=== PATIENT | male | born 1960 | race Caucasian/White ===

== ENCOUNTER 2017-06-16 11:13 | Emergency (ER) | payer MEDICAID ==
[~2017-06-16] VITALS: Ht 177.8 cm; Wt 148.6 kg
[~2017-06-16 11:13] MED LIST: AMLO10TA2 PO; ASPI-496 PO; ATOR40TA78 PO; CARV-39 PO; CEPH-368 PO; CHOL500015 PO; CYCL-259 PO; GABA300C10 PO; GLIP10TA3 PO; HYDR-3307 PO; HYDR25TA6 PO; INDA1.25 PO; INSU100I13 SC; LOSA50TA6 PO; METF10002 PO; MULT1CAP19 PO; OMEG1CAP95 PO; SENN8.6C2 PO; SIMV20TA3; SITA1TBM4
[2017-06-16 11:18] VITALS: BP 121/77
== END 2017-06-16 11:46 | disposition home or self-care (01) ==
LOC: ED 11:30
DX: H65.01 Acute serous otitis media, right ear (principal); I10 Essential (primary) hypertension; G89.29 Other chronic pain; M54.9 Dorsalgia, unspecified; E11.9 Type 2 diabetes mellitus without complications
CPT/HCPCS: 99283

== ENCOUNTER 2017-08-07 19:21 | Emergency (ER) | payer MEDICAID ==
[~2017-08-07] VITALS: Ht 177.8 cm; Wt 146.0 kg
[2017-08-07] MEDS ORDERED: LOSA100T6 PO (20:40)
[2017-08-07] MEDS ORDERED: INSU100I34 SC (20:40)
[2017-08-07] MEDS ORDERED: CYCLOBENZAPRINE 10 MG TABLET ONE (20:56)
[2017-08-07] MEDS ORDERED: KETOROLAC 30 MG/1 ML ONE (20:56)
[2017-08-07] MEDS ORDERED: KETOROLAC 30 MG/1 ML IM ONE (21:00)
[2017-08-07] MEDS ORDERED: CYCLOBENZAPRINE 10 MG TABLET PO ONE (21:00)
[2017-08-07 21:04] LABS: HEMATOCRIT 41.3 % (39.2-51.8); HEMOGLOBIN 14.1 g/dL (13.7-18.0); WHITE BLOOD COUNT 8.7 x10^3/uL (3.4-10)
[2017-08-07 21:13] LABS: PATH.CAST-FLAG NOT PRESENT; SPERM-FLAG NOT PRESENT; SRC-FLAG NOT PRESENT; XTAL-FLAG NOT PRESENT; YLC-FLAG NOT PRESENT
[2017-08-07 21:15] LABS: BLOOD UREA NITROGEN 16 mg/dL (7-18)
[2017-08-07 21:48] VITALS: BP 129/75
== END 2017-08-07 22:45 | disposition home or self-care (01) ==
LOC: ED 22:30
DX: G89.29 Other chronic pain (principal); M54.6 Pain in thoracic spine; M51.34 Other intervertebral disc degeneration, thoracic region; I10 Essential (primary) hypertension; E11.65 Type 2 diabetes mellitus with hyperglycemia
CPT/HCPCS: 36415; 72072; 80048; 81001; 82040; 85025; 96372; 99285; J1885

== ENCOUNTER 2018-12-28 09:10 | Observation (INO) | payer MEDICAID ==
[~2018-12-28] VITALS: Ht 180.3 cm; Wt 146.5 kg
[~2018-12-28 09:10] MED LIST changes: -AMLO10TA2 PO; +AMLO10TA8 PO; +INSU100I34 SC; +LOSA100T14 PO; +LOSA50TA14 PO; -LOSA50TA6 PO
--- NOTE | 2018-12-28 10:14 | NUR ---
MD at bedside for assessment, patient accompanied by spouse, VSS on room air, NSR on bin packer, PWD, call light in reach.
[2018-12-28] MEDS ORDERED: NITROGLYCERIN OINT 2%, 1GM TP ONE ×2 (10:30→10:39)
[2018-12-28] MEDS ORDERED: SODIUM CHLORIDE FLUSH 10ML SYR IVF ONE (10:30)
[2018-12-28] MEDS ORDERED: ASPIRIN 81 MG TABLET CHEW PO ONE (10:30)
[2018-12-28] MEDS ORDERED: ASPIRIN 81 MG TABLET CHEW ONE (10:39)
--- NOTE | 2018-12-28 10:48 | NUR ---
medicated per mar, no acute changes, vss on room air,
[2018-12-28 10:59] LABS: BASOPHILS # (AUTO) 0.03 x10^3/uL (0-0.1); BASOPHILS % (AUTO) 1 % (0-1); EOSINOPHILS # (AUTO) 0.19 x10^3/uL (0-0.4); EOSINOPHILS % (AUTO) 3 % (1-7); LYMPHOCYTES # (AUTO) 2.28 x10^3/uL (1-3.4); LYMPHOCYTES % (AUTO) 36 % (22-44); MD NO; MEAN CORPUSCULAR HEMOGLOBIN 30.6 pg (27.5-34.5); MEAN CORPUSCULAR HGB CONC 34.3 g/dL (33.2-36.2); MEAN CORPUSCULAR VOLUME 89.3 fL (81-97); MEAN PLATELET VOLUME 7.9 fL (7.4-10.4); MONOCYTES # (AUTO) 0.73 x10^3/uL (0.2-0.8); MONOCYTES % (AUTO) 12 % (2-9); NEUTROPHILS # (AUTO) 3.13 x10^3/uL (1.8-6.8); NEUTROPHILS % (AUTO) 49 % (42-75); PLATELET COUNT 184 x10^3/uL (130-400); RED BLOOD COUNT 4.67 x10^6/uL (4.38-5.82); RED CELL DISTRIBUTION WIDTH 12.5 % (9.4-14.8)
[2018-12-28] MEDS ORDERED: novol (11:03)
[2018-12-28 11:05] LABS: INTERNATIONAL NORMALIZED RATIO 1.08 (0.93-1.1); PROTHROMBIN TIME 11.4 Seconds (9.6-11.5)
[2018-12-28 11:07] LABS: ALANINE AMINOTRANSFERASE 43 U/L (12-78); ALBUMIN 3.8 g/dL (3.4-5.0); ANION GAP 5 mmol/L (5-15); CHLORIDE 106 mmol/L (98-107); CREATININE 0.86 mg/dL (0.7-1.3)
[2018-12-28] MEDS ORDERED: vit d2 (11:08)
[2018-12-28] MEDS ORDERED: INSU300I SC (11:08)
[2018-12-28] MEDS ORDERED: VICTOZA (11:08)
[2018-12-28] MEDS ORDERED: novolog (11:08)
[2018-12-28] MEDS ORDERED: GABA300C10 PO ×2 (11:08)
[2018-12-28 11:11] LABS: ALKALINE PHOSPHATASE 117 U/L (45-117); TOTAL PROTEIN 7.8 g/dL (6.4-8.2); TROPONIN I < 0.015 ng/mL (0.000-0.045)
--- NOTE | 2018-12-28 11:59 | NUR ---
patient updated of transfer plan, spouse at bedside VSS on room air, No chest pain now, 1/10 L arm sharp tingling remains, water and crackers provided with permission from MD Sloan, Report via phone to PAO [place], all questions answered, Hospitalist Abbey has been to bedside, RTG status now.
[2018-12-28] MEDS ORDERED: ACETAMINOPHEN 325 MG TABLET PO PRN (12:00)
[2018-12-28] MEDS ORDERED: ONDANSETRON 2MG/ML, 2ML IVPush PRN (12:00)
[2018-12-28] MEDS ORDERED: ENOXAPARIN 40 MG/0.4 ML SQ SCH (12:00)
[2018-12-28] MEDS ORDERED: BISACODYL 10 MG SUPP PR PRN (12:00)
[2018-12-28] MEDS ORDERED: ENALAPRILAT 1.25 MG/ML, 2ML IVPush PRN (12:00)
[2018-12-28] MEDS ORDERED: POLYETHYLENE GLYCOL 17 GM PACKET PO PRN (12:00)
[2018-12-28] MEDS ORDERED: DOCUSATE 100 MG CAPSULE PO PRN (12:00)
[2018-12-28 12:50] VITALS: BP 133/80
[2018-12-28 16:00] LABS: TROPONIN I < 0.015 ng/mL (0.000-0.045)
[2018-12-28] MEDS: INSULIN LISPRO 100 UNITS/ML, PEN SQ-INSULIN SCH ×2 (17:09→20:39)
[2018-12-28 19:56] VITALS: BP 138/82
[2018-12-28] MEDS: CARVEDILOL 25 MG TABLET PO SCH (20:33)
[2018-12-28] MEDS ORDERED: GABAPENTIN 300 MG CAPSULE PO SCH (21:00)
[2018-12-28] MEDS ORDERED: LOSARTAN 50MG TABLET PO SCH (21:00)
[2018-12-28 21:38] LABS: TROPONIN I < 0.015 ng/mL (0.000-0.045)
[2018-12-29 02:30] VITALS: BP 135/87
[2018-12-29 05:27] LABS: CHOL/HDL RATIO 3.1; LDL/HDL RATIO 0.4 (0.5-3.0)
[2018-12-29] MEDS: INSULIN LISPRO 100 UNITS/ML, PEN SQ-INSULIN SCH ×3 (07:00→17:31)
[2018-12-29 07:09] VITALS: BP 143/88
[2018-12-29] MEDS ORDERED: GABAPENTIN 300 MG CAPSULE PO SCH (07:30)
[2018-12-29] MEDS: CARVEDILOL 25 MG TABLET PO SCH (08:24)
[2018-12-29] MEDS ORDERED: REGADENOSON 0.4 MG/5 ML SYRINGE ONE (08:24)
[2018-12-29] MEDS ORDERED: AMLODIPINE 10 MG TAB PO SCH (09:00)
[2018-12-29] MEDS ORDERED: ASPIRIN 81 MG TABLET EC PO SCH (09:00)
[2018-12-29 16:48] VITALS: BP 154/84
== END 2018-12-29 18:15 | disposition home or self-care (01) ==
LOC: ED 11:13 → EDIP 11:16 → INTOOBSV 11:16 → 5SO 12:27
PROVIDERS: ADMIT Family Medicine; ATTEND Family Medicine
DX: R07.89 Other chest pain (principal); E11.65 Type 2 diabetes mellitus with hyperglycemia; E78.5 Hyperlipidemia, unspecified; G47.33 Obstructive sleep apnea (adult) (pediatric); I11.9 Hypertensive heart disease without heart failure; Z79.4 Long term (current) use of insulin; Z82.49 Family history of ischemic heart disease and other diseases of the circulatory system; Z83.3 Family history of diabetes mellitus
CPT/HCPCS: 36415; 71045; 78452; 80053; 80061; 82962; 83880; 84484; 85025; 85610; 85730; 93005; 93017; 96372; 99284; A9502; C9898; G0378; J1650; J1815; J2785; 99285

== ENCOUNTER 2019-03-17 09:52 | Emergency (ER) | payer MEDICAID ==
[~2019-03-17] VITALS: Ht 177.8 cm; Wt 150.0 kg
[~2019-03-17 09:52] MED LIST changes: +INSU300I SC; +VICTOZA; +novol; +novolog; +vit d2
--- NOTE | 2019-03-17 10:28 | NUR ---
pt in room. at bedside. md in room previous to discuss poc. pt agrees with poc at this time and awaiting results. no needs or wants expressed at this time.
[2019-03-17 10:34] LABS: BASOPHILS # (AUTO) 0.02 x10^3/uL (0-0.1); BASOPHILS % (AUTO) 0 % (0-1); EOSINOPHILS # (AUTO) 0.15 x10^3/uL (0-0.4); EOSINOPHILS % (AUTO) 2 % (1-7); LYMPHOCYTES # (AUTO) 2.15 x10^3/uL (1-3.4); LYMPHOCYTES % (AUTO) 34 % (22-44); MD NO; MEAN CORPUSCULAR HEMOGLOBIN 30.9 pg (27.5-34.5); MEAN CORPUSCULAR HGB CONC 34.6 g/dL (33.2-36.2); MEAN CORPUSCULAR VOLUME 89.1 fL (81-97); MEAN PLATELET VOLUME 7.9 fL (7.4-10.4); MONOCYTES # (AUTO) 0.68 x10^3/uL (0.2-0.8); MONOCYTES % (AUTO) 11 % (2-9); NEUTROPHILS # (AUTO) 3.26 x10^3/uL (1.8-6.8); NEUTROPHILS % (AUTO) 52 % (42-75); PLATELET COUNT 200 x10^3/uL (130-400); RED BLOOD COUNT 4.75 x10^6/uL (4.38-5.82); RED CELL DISTRIBUTION WIDTH 12.6 % (9.4-14.8)
[2019-03-17 10:43] LABS: ALBUMIN 3.8 g/dL (3.4-5.0); ANION GAP 8 mmol/L (5-15); CHLORIDE 103 mmol/L (98-107); CREATININE 1.05 mg/dL (0.7-1.3)
[2019-03-17] MEDS ORDERED: SULFAMETH./TRIMETHOPRIM DS 800MG/160MG TABLET PO ONE (11:00)
[2019-03-17] MEDS ORDERED: CEPHALEXIN 500 MG CAPSULE PO ONE (11:00)
[2019-03-17] MEDS ORDERED: CEFTRIAXONE PMX 1GM/50ML 50 ML ONE (11:18)
[2019-03-17] MEDS ORDERED: SODIUM CHLORIDE FLUSH 10ML SYR IVF ONE (11:30)
[2019-03-17] MEDS ORDERED: CEFTRIAXONE PMX 1GM/50ML 50 ML IVPB ONE (11:30)
[2019-03-17] MEDS ORDERED: SODIUM CHLORIDE 0.9% 1,000ML IVBOLUS ONE (11:30)
--- NOTE | 2019-03-17 11:35 | NUR ---
PT IN BED WITH AT BEDSIDE. NO WANTS OR NEEDS AT THIS TIME.
[2019-03-17 12:19] VITALS: BP 128/79
--- NOTE | 2019-03-17 12:21 | NUR ---
TASK RN: IVF COMPLETED, FSBS RECHECKED, VS UPDATED. PT. [address]. FAMILY AT FOR SUPPORT. PT. DENIES NEEDS. CALL LIGHT IN REACH.
== END 2019-03-17 12:55 | disposition home or self-care (01) ==
LOC: ED 10:15
DX: L03.032 Cellulitis of left toe (principal); I10 Essential (primary) hypertension; E11.9 Type 2 diabetes mellitus without complications; E78.00 Pure hypercholesterolemia, unspecified
CPT/HCPCS: 36415; 80048; 82040; 85025; 96365; 99283; J0696; J7030

== ENCOUNTER → 2019-04-17 | Outpatient (CLI) | payer MEDICAID ==
[~2019-04-17] MED LIST changes: +ATOR40TA PO; +ERGO500017 PO; +FURO-93 PO; +INSU100I18 SC; +LIRA0.6P SC; +MULT-516 PO; +POTA20TA6 PO
[2019-04-17 10:41] LABS: BASOPHILS # (AUTO) 0.03 x10^3/uL (0-0.1); BASOPHILS % (AUTO) 1 % (0-1); EOSINOPHILS # (AUTO) 0.22 x10^3/uL (0-0.4); EOSINOPHILS % (AUTO) 3 % (1-7); LYMPHOCYTES # (AUTO) 2.11 x10^3/uL (1-3.4); LYMPHOCYTES % (AUTO) 29 % (22-44); MD NO; MEAN CORPUSCULAR HEMOGLOBIN 30.7 pg (27.5-34.5); MEAN CORPUSCULAR HGB CONC 33.7 g/dL (33.2-36.2); MEAN PLATELET VOLUME 7.5 fL (7.4-10.4); MONOCYTES # (AUTO) 0.77 x10^3/uL (0.2-0.8); MONOCYTES % (AUTO) 11 % (2-9); NEUTROPHILS # (AUTO) 4.04 x10^3/uL (1.8-6.8); NEUTROPHILS % (AUTO) 56 % (42-75); PLATELET COUNT 209 x10^3/uL (130-400); RED BLOOD COUNT 4.97 x10^6/uL (4.38-5.82); RED CELL DISTRIBUTION WIDTH 12.6 % (9.4-14.8)
[2019-04-17 10:56] LABS: MICROSCOPIC NOT IND
[2019-04-17 10:57] LABS: ANION GAP 8 mmol/L (5-15); CALCIUM 8.8 mg/dL (8.5-10.1); CHLORIDE 104 mmol/L (98-107)
[2019-04-17 10:58] LABS: INTERNATIONAL NORMALIZED RATIO 1.06 (0.93-1.1); PROTHROMBIN TIME 11.1 Seconds (9.6-11.5)
[2019-04-17 11:00] LABS: ALANINE AMINOTRANSFERASE 53 U/L (12-78); ALKALINE PHOSPHATASE 112 U/L (45-117); CREATININE 1.13 mg/dL (0.7-1.3); TOTAL PROTEIN 7.7 g/dL (6.4-8.2)
[2019-04-17 11:04] LABS: CULTURE INDICATED? NO
== END | disposition home or self-care (01) ==
LOC: STAR 09:37
PROVIDERS: ATTEND Neurological Surgery
DX: Z01.818 Encounter for other preprocedural examination (principal); Z01.810 Encounter for preprocedural cardiovascular examination; Z01.812 Encounter for preprocedural laboratory examination; Z01.811 Encounter for preprocedural respiratory examination; M47.816 Spondylosis without myelopathy or radiculopathy, lumbar region; R94.31 Abnormal electrocardiogram [ECG] [EKG]
CPT/HCPCS: 36415; 71046; 72110; 80053; 81003; 85025; 85610; 85730; 93005

== ENCOUNTER 2019-04-28 07:00 | Inpatient (IN) | payer MEDICAID ==
[2019-04-17 10:04] VITALS: BP 145/88
[~2019-04-28] VITALS: Ht 177.8 cm; Wt 151.5 kg
[2019-04-28] MEDS ORDERED: LACTATED RINGERS 1,000 ML IV SCH (08:03)
[2019-04-28] MEDS ORDERED: MIDAZOLAM 1 MG/ML, 2ML ONE (08:20)
[2019-04-28] MEDS ORDERED: FENTANYL PF 250 MCG/5ML ONE ×2 (08:21→10:33)
[2019-04-28] MEDS ORDERED: PROPOFOL 100 ML ONE ×2 (08:29→12:06)
[2019-04-28] MEDS ORDERED: THROMBIN 20,000 UNIT VIAL TP ONE ×2 (08:30→16:37)
[2019-04-28] MEDS ORDERED: ONDANSETRON 2MG/ML, 2ML ONE (08:31)
[2019-04-28] MEDS ORDERED: CEFAZOLIN 1,000 MG ONE (08:31)
[2019-04-28] MEDS ORDERED: PROPOFOL 10 MG/ML, 20ML ONE (08:31)
[2019-04-28] MEDS ORDERED: LIDOCAINE-MPF 2% ,5ML ONE (08:31)
[2019-04-28] MEDS ORDERED: ROCURONIUM 10MG/ML,5ML ONE (08:31)
[2019-04-28] MEDS ORDERED: NEOSTIGMINE 1 MG/ML, 10ML ONE (08:31)
[2019-04-28] MEDS ORDERED: DEXAMETHASONE 4 MG/ML, 1ML ONE (08:31)
[2019-04-28] MEDS ORDERED: SUCCINYLCHOLINE 20 MG/ML, 10ML ONE (08:31)
[2019-04-28] MEDS ORDERED: GLYCOPYRROLATE 0.2MG/1ML, 5ML ONE (08:31)
[2019-04-28] MEDS ORDERED: hydrALAzine 20 MG/ML, 1ML ONE (10:04)
[2019-04-28] MEDS ORDERED: BUPIVACAINE/EPI 0.5% 1:200K INFIL ONE (10:47)
[2019-04-28] MEDS ORDERED: BACITRACIN 50,000 UNIT IRRIG ONE (10:48)
[2019-04-28] MEDS ORDERED: MEPERIDINE/PF 25MG/0.5ML IVPush PRN (12:30)
[2019-04-28] MEDS ORDERED: LORazepam 2 MG/ML, 1ML IVPush PRN (12:30)
[2019-04-28] MEDS ORDERED: ONDANSETRON 2MG/ML, 2ML IV PRN (12:30)
[2019-04-28] MEDS ORDERED: LABETALOL 5MG/ML, 20ML IV PRN (12:30)
[2019-04-28] MEDS ORDERED: ONDANSETRON ODT 8 MG PO PRN (12:30)
[2019-04-28] MEDS ORDERED: ACETAMINOPHEN 325 MG TABLET PO PRN (12:30)
[2019-04-28] MEDS ORDERED: OXYcodone 5 MG/5 ML ORAL.SOL UDC PO PRN (12:30)
[2019-04-28] MEDS ORDERED: hydrALAzine 20 MG/ML, 1ML IV PRN (12:30)
[2019-04-28] MEDS ORDERED: PROMETHAZINE 25 MG/ML, 1ML IV PRN (12:30)
[2019-04-28] MEDS ORDERED: PROMETHAZINE 25 MG SUPP PR PRN (12:30)
[2019-04-28] MEDS ORDERED: FENTANYL PF 100 MCG/2ML ONE ×2 (13:15→13:54)
[2019-04-28] MEDS ORDERED: OXYcodone 5 MG/5 ML ORAL.SOL UDC ONE (13:54)
[2019-04-28] MEDS ORDERED: HYDROmorphone 2 MG/ML, 1ML ONE (13:54)
[2019-04-28] MEDS: HYDROmorphone 2 MG/ML, 1ML IVPush PRN ×2 (14:00→14:11)
[2019-04-28] MEDS ORDERED: SENNA/DOCUSATE TABLET PO PRN (14:00)
[2019-04-28] MEDS: FENTANYL PF 100 MCG/2ML IV PRN ×2 (14:00→14:15)
[2019-04-28] MEDS ORDERED: MAGNESIUM HYDROXIDE 8%, 30ML UDC PO PRN (14:00)
[2019-04-28] MEDS ORDERED: HYDROcodone/APAP 5/325 TABLET PO PRN (14:00)
[2019-04-28] MEDS ORDERED: ERGOCALCIFEROL 50,000 UNIT CAPSULE PO SCH (14:00)
[2019-04-28] MEDS ORDERED: BISACODYL 10 MG SUPP PR PRN (14:00)
[2019-04-28] MEDS ORDERED: PROMETHAZINE 25 MG/ML, 1ML IM PRN (14:00)
[2019-04-28] MEDS ORDERED: ONDANSETRON 2MG/ML, 2ML IVPush PRN (14:00)
[2019-04-28] MEDS ORDERED: HYDROmorphone 2 MG/ML, 1ML IM PRN (14:00)
[2019-04-28] MEDS ORDERED: PHARMACY MAY ADJ FOR RENAL FX MC PRN (15:00)
[2019-04-28] MEDS: CHOLECALCIFEROL 5,000u TAB PO SCH (15:46)
[2019-04-28] MEDS: NS + 20MEQ KCL 1,000 ML IV SCH (15:46)
[2019-04-28] MEDS ORDERED: BACITRACIN 50,000 UNIT ONE (16:37)
[2019-04-28] MEDS ORDERED: BUPIVACAINE/EPI 0.5% 1:200K ONE (16:37)
[2019-04-28] MEDS: metFORMIN 500 MG TABLET PO SCH (16:43)
[2019-04-28] MEDS: METHOCARBAMOL 750 MG TABLET PO PRN (16:44)
[2019-04-28] MEDS: INSULIN REGULAR 100 UNITS/ML, 3ML VIAL SQ-INSULIN SCH ×2 (16:44→20:25)
[2019-04-28] MEDS: CEFAZOLIN PMX 1GM/50ML 50 ML IVPB SCH (16:44)
[2019-04-28] MEDS: NOVOLOG SQ-INSULIN SCH (16:51)
[2019-04-28 19:48] VITALS: BP 128/81
[2019-04-28] MEDS: AMLODIPINE 10 MG TAB PO SCH (20:28)
[2019-04-28] MEDS: ATORVASTATIN 40 MG TABLET PO SCH (20:28)
[2019-04-28] MEDS: GABAPENTIN 300 MG CAPSULE PO SCH (20:28)
[2019-04-28] MEDS: CARVEDILOL 25 MG TABLET PO SCH (20:29)
[2019-04-28] MEDS: SODIUM CHLORIDE FLUSH 10ML SYR IVF SCH (20:29)
[2019-04-28] MEDS: LOSARTAN 50MG TABLET PO SCH (20:29)
[2019-04-28] MEDS: DIPHENHYDRAMINE 50 MG/ML, 1ML IVPush PRN (20:41)
[2019-04-29 00:16] VITALS: BP 130/77
[2019-04-29] MEDS: CEFAZOLIN PMX 1GM/50ML 50 ML IVPB SCH (00:34)
[2019-04-29] MEDS: OXYcodone/APAP 5/325MG TABLET PO PRN ×3 (00:35→10:53)
[2019-04-29] MEDS: NS + 20MEQ KCL 1,000 ML IV SCH ×2 (03:54→14:00)
[2019-04-29 04:21] LABS: CREATININE 0.98 mg/dL (0.7-1.3)
[2019-04-29 04:22] VITALS: BP 109/64
[2019-04-29 07:09] VITALS: BP 98/52
[2019-04-29] MEDS: NOVOLOG SQ-INSULIN SCH ×3 (07:30→16:00)
[2019-04-29] MEDS: GABAPENTIN 300 MG CAPSULE PO SCH ×2 (07:30→19:46)
[2019-04-29] MEDS: INSULIN REGULAR 100 UNITS/ML, 3ML VIAL SQ-INSULIN SCH ×4 (07:43→22:12)
[2019-04-29] MEDS: metFORMIN 500 MG TABLET PO SCH ×2 (07:44→17:26)
[2019-04-29] MEDS: SODIUM CHLORIDE FLUSH 10ML SYR IVF SCH ×2 (09:00→19:37)
[2019-04-29] MEDS: CARVEDILOL 25 MG TABLET PO SCH ×2 (09:13→19:47)
[2019-04-29] MEDS: CHOLECALCIFEROL 5,000u TAB PO SCH (09:13)
[2019-04-29] MEDS: MULTIVITAMIN 1 TABLET PO SCH (09:13)
[2019-04-29] MEDS: FUROSEMIDE 20 MG TABLET PO SCH (09:13)
[2019-04-29] MEDS: POTASSIUM CHLORIDE 20 MEQ TAB.ER.PRT PO SCH (09:13)
[2019-04-29] MEDS: DIPHENHYDRAMINE 50 MG/ML, 1ML IVPush PRN ×2 (10:53→19:37)
[2019-04-29 13:08] VITALS: BP 128/80
[2019-04-29 18:54] VITALS: BP 156/97
[2019-04-29] MEDS: HYDROcodone/APAP 10/325 MG TABLET PO PRN (19:46)
[2019-04-29] MEDS: ATORVASTATIN 40 MG TABLET PO SCH (19:46)
[2019-04-29] MEDS: AMLODIPINE 10 MG TAB PO SCH (19:47)
[2019-04-29] MEDS: LOSARTAN 50MG TABLET PO SCH (19:47)
[2019-04-30] MEDS: HYDROcodone/APAP 10/325 MG TABLET PO PRN ×5 (01:01→21:13)
[2019-04-30 01:15] VITALS: BP 120/73
[2019-04-30] MEDS: DIPHENHYDRAMINE 50 MG/ML, 1ML IVPush PRN ×3 (01:54→21:13)
[2019-04-30] MEDS: INSULIN REGULAR 100 UNITS/ML, 3ML VIAL SQ-INSULIN SCH ×4 (07:00→20:38)
[2019-04-30 07:10] VITALS: BP 118/84
[2019-04-30] MEDS: CARVEDILOL 25 MG TABLET PO SCH ×2 (08:18→21:00)
[2019-04-30] MEDS: CHOLECALCIFEROL 5,000u TAB PO SCH (08:18)
[2019-04-30] MEDS: FUROSEMIDE 20 MG TABLET PO SCH (08:19)
[2019-04-30] MEDS: MULTIVITAMIN 1 TABLET PO SCH (08:19)
[2019-04-30] MEDS: POTASSIUM CHLORIDE 20 MEQ TAB.ER.PRT PO SCH (08:19)
[2019-04-30] MEDS: metFORMIN 500 MG TABLET PO SCH ×2 (08:19→17:04)
[2019-04-30] MEDS: NOVOLOG SQ-INSULIN SCH ×3 (08:19→17:05)
[2019-04-30] MEDS: GABAPENTIN 300 MG CAPSULE PO SCH ×2 (08:19→21:00)
[2019-04-30] MEDS: SODIUM CHLORIDE FLUSH 10ML SYR IVF SCH ×2 (08:20→21:14)
[2019-04-30] MEDS: NS + 20MEQ KCL 1,000 ML IV SCH ×3 (10:00→20:00)
[2019-04-30 12:18] VITALS: BP 131/83
[2019-04-30 20:26] VITALS: BP 124/67
[2019-04-30] MEDS: AMLODIPINE 10 MG TAB PO SCH (20:59)
[2019-04-30] MEDS: ATORVASTATIN 40 MG TABLET PO SCH (21:00)
[2019-04-30] MEDS: LOSARTAN 50MG TABLET PO SCH (21:00)
[2019-05-01 00:46] VITALS: BP 103/59
[2019-05-01] MEDS: HYDROcodone/APAP 10/325 MG TABLET PO PRN ×4 (04:17→21:18)
[2019-05-01] MEDS: NS + 20MEQ KCL 1,000 ML IV SCH ×2 (05:58→16:00)
[2019-05-01 06:58] VITALS: BP 109/61
[2019-05-01] MEDS: INSULIN REGULAR 100 UNITS/ML, 3ML VIAL SQ-INSULIN SCH ×4 (07:00→21:56)
[2019-05-01 07:49] VITALS: BP 124/75
[2019-05-01] MEDS: GABAPENTIN 300 MG CAPSULE PO SCH ×2 (07:51→21:17)
[2019-05-01] MEDS: SODIUM CHLORIDE FLUSH 10ML SYR IVF SCH ×2 (07:51→21:00)
[2019-05-01] MEDS: POTASSIUM CHLORIDE 20 MEQ TAB.ER.PRT PO SCH (07:51)
[2019-05-01] MEDS: MULTIVITAMIN 1 TABLET PO SCH (07:51)
[2019-05-01] MEDS: metFORMIN 500 MG TABLET PO SCH ×2 (07:51→16:30)
[2019-05-01] MEDS: FUROSEMIDE 20 MG TABLET PO SCH (07:51)
[2019-05-01] MEDS: CARVEDILOL 25 MG TABLET PO SCH ×2 (07:51→21:17)
[2019-05-01] MEDS: CHOLECALCIFEROL 5,000u TAB PO SCH (07:51)
[2019-05-01] MEDS: NOVOLOG SQ-INSULIN SCH ×3 (07:52→16:31)
[2019-05-01] MEDS: CEFAZOLIN PMX 1GM/50ML 50 ML IV SCH ×2 (09:57→17:03)
[2019-05-01 13:08] VITALS: BP 125/73
[2019-05-01] MEDS: DIPHENHYDRAMINE 25 MG CAPSULE PO PRN ×2 (13:16→21:17)
[2019-05-01 19:36] VITALS: BP 131/74
[2019-05-01] MEDS: AMLODIPINE 10 MG TAB PO SCH (21:16)
[2019-05-01] MEDS: ATORVASTATIN 40 MG TABLET PO SCH (21:16)
[2019-05-01] MEDS: LOSARTAN 50MG TABLET PO SCH (21:17)
[2019-05-02] MEDS: DIPHENHYDRAMINE 25 MG CAPSULE PO PRN (00:44)
[2019-05-02] MEDS: CEFAZOLIN PMX 1GM/50ML 50 ML IV SCH (00:45)
[2019-05-02] MEDS: NS + 20MEQ KCL 1,000 ML IV SCH ×2 (01:59→12:00)
[2019-05-02 02:39] VITALS: BP 119/64
[2019-05-02] MEDS: METHOCARBAMOL 750 MG TABLET PO PRN (06:50)
[2019-05-02 06:55] VITALS: BP 116/68
[2019-05-02] MEDS: INSULIN REGULAR 100 UNITS/ML, 3ML VIAL SQ-INSULIN SCH ×2 (07:00→11:00)
[2019-05-02] MEDS: POTASSIUM CHLORIDE 20 MEQ TAB.ER.PRT PO SCH (08:34)
[2019-05-02] MEDS: HYDROmorphone 2MG TABLET PO PRN ×2 (08:34→12:35)
[2019-05-02] MEDS: FUROSEMIDE 20 MG TABLET PO SCH (08:35)
[2019-05-02] MEDS: MULTIVITAMIN 1 TABLET PO SCH (08:35)
[2019-05-02] MEDS: GABAPENTIN 300 MG CAPSULE PO SCH (08:35)
[2019-05-02] MEDS: CHOLECALCIFEROL 5,000u TAB PO SCH (08:35)
[2019-05-02] MEDS: metFORMIN 500 MG TABLET PO SCH (08:35)
[2019-05-02] MEDS: SODIUM CHLORIDE FLUSH 10ML SYR IVF SCH (08:37)
[2019-05-02] MEDS: CARVEDILOL 25 MG TABLET PO SCH (08:37)
[2019-05-02] MEDS: NOVOLOG SQ-INSULIN SCH ×2 (08:38→11:52)
[2019-05-02] MEDS ORDERED: DOXYCYCLINE 100MG TABLET PO SCH (09:00)
[2019-05-02] MEDS ORDERED: METH750T87 PO (09:27)
[2019-05-02] MEDS ORDERED: CEPH-368 PO (09:27)
[2019-05-02] MEDS ORDERED: HYDR2TAB29 PO (09:29)
[2019-05-02 12:24] VITALS: BP 120/73
== END 2019-05-02 13:08 | disposition home or self-care (01) | DRG 455 ==
LOC: ORIP 07:10 → 4NOR 14:47 → DCLOUNGE 05-02 12:50
PROVIDERS: ADMIT Neurological Surgery; ATTEND Neurological Surgery
PROC: 0ST40ZZ Resection of Lumbosacral Disc, Open Approach (ICD-10-PCS; 2019-04-28)
PROC: 01NB0ZZ Release Lumbar Nerve, Open Approach (ICD-10-PCS; 2019-04-28)
PROC: 4A11X4G Monitoring of Peripheral Nervous Electrical Activity, Intraoperative, External Approach (ICD-10-PCS; 2019-04-28)
PROC: 0SG3071 Fusion of Lumbosacral Joint with Autologous Tissue Substitute, Posterior Approach, Posterior Column, Open Approach (ICD-10-PCS; 2019-04-28)
PROC: 0SG30AJ Fusion of Lumbosacral Joint with Interbody Fusion Device, Posterior Approach, Anterior Column, Open Approach (ICD-10-PCS; principal; 2019-04-28 10:00)
DX: M51.17 Intervertebral disc disorders with radiculopathy, lumbosacral region (principal); M43.17 Spondylolisthesis, lumbosacral region; M48.061 Spinal stenosis, lumbar region without neurogenic claudication; M51.16 Intervertebral disc disorders with radiculopathy, lumbar region; I10 Essential (primary) hypertension; E11.9 Type 2 diabetes mellitus without complications; G89.29 Other chronic pain; M48.07 Spinal stenosis, lumbosacral region; Z88.1 Allergy status to other antibiotic agents; Z88.8 Allergy status to other drugs, medicaments and biological substances; Z88.5 Allergy status to narcotic agent; Z88.6 Allergy status to analgesic agent; Z79.899 Other long term (current) drug therapy; Z98.84 Bariatric surgery status
CPT/HCPCS: 36415; 72100; J3490; 82565; 82962; C1713; C1729; C1776; G0378; J0690; J1100; J1170; J1815; J2250; J2405; J2704; J2710; J3010; J3480; C1751; C1763; J0330; J0360; J1200; J7120; Q0163

== ENCOUNTER 2019-05-16 19:07 | Emergency (ER) | payer MEDICAID ==
[~2019-05-16] VITALS: Ht 177.8 cm; Wt 145.2 kg
[~2019-05-16 19:07] MED LIST changes: +HYDR2TAB29 PO; +METH750T87 PO
--- NOTE | 2019-05-16 20:04 | NUR ---
PT HAD BACK SURGERY ON 04/28. PT WORRIED ABOUT INCISION NOW BECUASE OF WARM, REDDNESS, DISCHARGE AT INCISION ON BACK. NO OTHER SYMPTOMS AT THIS TIME.
[2019-05-16 20:50] LABS: BASOPHILS # (AUTO) 0.09 x10^3/uL (0-0.1); BASOPHILS % (AUTO) 1 % (0-1); EOSINOPHILS # (AUTO) 0.06 x10^3/uL (0-0.4); EOSINOPHILS % (AUTO) 1 % (1-7); LYMPHOCYTES # (AUTO) 1.27 x10^3/uL (1-3.4); LYMPHOCYTES % (AUTO) 11 % (22-44); MD NO; MEAN CORPUSCULAR HEMOGLOBIN 30.6 pg (27.5-34.5); MEAN CORPUSCULAR HGB CONC 33.2 g/dL (33.2-36.2); MEAN CORPUSCULAR VOLUME 92.3 fL (81-97); MEAN PLATELET VOLUME 7.3 fL (7.4-10.4); MONOCYTES # (AUTO) 1.08 x10^3/uL (0.2-0.8); MONOCYTES % (AUTO) 10 % (2-9); NEUTROPHILS # (AUTO) 8.58 x10^3/uL (1.8-6.8); NEUTROPHILS % (AUTO) 77 % (42-75); PLATELET COUNT 276 x10^3/uL (130-400); RED BLOOD COUNT 4.39 x10^6/uL (4.38-5.82); RED CELL DISTRIBUTION WIDTH 13.3 % (9.4-14.8)
[2019-05-16 20:57] LABS: ALANINE AMINOTRANSFERASE 25 U/L (12-78); ALBUMIN 3.4 g/dL (3.4-5.0); ANION GAP 3 mmol/L (5-15); CALCIUM 8.9 mg/dL (8.5-10.1); CHLORIDE 102 mmol/L (98-107); CREATININE 1.14 mg/dL (0.7-1.3)
[2019-05-16 20:59] LABS: ALKALINE PHOSPHATASE 133 U/L (45-117); BILIRUBIN,TOTAL 0.7 mg/dL (0.2-1.0); TOTAL PROTEIN 7.4 g/dL (6.4-8.2)
--- NOTE | 2019-05-16 21:24 | NUR ---
PT TO CT
[2019-05-16] MEDS ORDERED: OMNIPAQUE 350 MG/ML, 100ML BOTTLE ONE (21:37)
--- NOTE | 2019-05-16 21:53 | NUR ---
ALL RESULTS BACK AT THIS TIME, CHART UP FOR RECHECK
--- NOTE | 2019-05-16 22:38 | NUR ---
MD TO BEDSIDE TO UPDATE PT AND FAMILY ON POC
--- NOTE | 2019-05-16 23:07 | NUR ---
RECEIVED BS REPORT FROM LYNDA Becerril RN TO ASSUME CARE OF PT. PT. PROVIDED WITH WATER AFTER OK FROM DR. ARENAS.
[2019-05-16] MEDS ORDERED: BACITRACIN ZINC OINT 500U/GM, 0.9 GM ONE (23:36)
[2019-05-17 00:08] VITALS: BP 93/62
== END 2019-05-17 00:09 | disposition home or self-care (01) ==
LOC: ED 22:20
DX: T81.31XA Disruption of external operation (surgical) wound, not elsewhere classified, initial encounter (principal); Z88.6 Allergy status to analgesic agent; Z88.5 Allergy status to narcotic agent; Z88.1 Allergy status to other antibiotic agents; Z88.8 Allergy status to other drugs, medicaments and biological substances; Y83.8 Other surgical procedures as the cause of abnormal reaction of the patient, or of later complication, without mention of misadventure at the time of the procedure; Y92.89 Other specified places as the place of occurrence of the external cause
CPT/HCPCS: 36415; 72132; 80053; 85025; 99284; Q9967

== ENCOUNTER 2019-05-26 14:49 | Inpatient (IN) | payer MEDICAID ==
[~2019-05-26] VITALS: Ht 177.8 cm; Wt 145.1 kg
--- NOTE | 2019-05-26 14:56 | NUR ---
PT AMBULATORY WITH STEADY GAIT USING CANE TO ROOM AT THIS TIME
--- NOTE | 2019-05-26 15:08 | NUR ---
58 Y/O MALE PRESENTS TO ED WITH C/O INFECTION. PER "HE HAD BACK SURGERY 04/28. ABOUT TWO WEEKS LATER IT GOT INFECTED. THE SURGEON HAS GIVEN HIM ABOUT 3 ROUNDS OF ABX. WE WENT TO DR. FOSTER'S OFFICE AND THEY SAID HE NEEDS SX TO CLEAR OUT THE INFECTION. 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 NO C/O N/V/D, TRAUMA, CP, SOB.
[2019-05-26] MEDS ORDERED: SODIUM CHLORIDE FLUSH 10ML SYR IVF ONE (15:30)
[2019-05-26] MEDS ORDERED: SODIUM CHLORIDE 0.9% 1,000ML IVBOLUS ONE (15:30)
--- NOTE | 2019-05-26 15:40 | NUR ---
PIV ESTABLISHED. PT TOLERATED WITH NO COMPLICATIONS. BLOOD OBTAINED. NO ACUTE DISTRESS NOTED. NO NEEDS REQUESTED AT THIS TIME. PT GIVEN URINAL. BEDSIDE.
[2019-05-26] MEDS ORDERED: CLINDAMYCIN PMX 900MG/50ML 50 ML IV ONE (16:00)
[2019-05-26 16:24] LABS: BASOPHILS # (AUTO) 0.04 x10^3/uL (0-0.1); BASOPHILS % (AUTO) 0 % (0-1); EOSINOPHILS # (AUTO) 0.17 x10^3/uL (0-0.4); EOSINOPHILS % (AUTO) 2 % (1-7); LYMPHOCYTES # (AUTO) 1.62 x10^3/uL (1-3.4); LYMPHOCYTES % (AUTO) 19 % (22-44); MD NO; MEAN CORPUSCULAR HEMOGLOBIN 30.4 pg (27.5-34.5); MEAN CORPUSCULAR HGB CONC 33.8 g/dL (33.2-36.2); MEAN CORPUSCULAR VOLUME 89.9 fL (81-97); MEAN PLATELET VOLUME 7.2 fL (7.4-10.4); MONOCYTES # (AUTO) 0.81 x10^3/uL (0.2-0.8); MONOCYTES % (AUTO) 10 % (2-9); NEUTROPHILS # (AUTO) 5.74 x10^3/uL (1.8-6.8); NEUTROPHILS % (AUTO) 69 % (42-75); PLATELET COUNT 344 x10^3/uL (130-400); RED BLOOD COUNT 4.26 x10^6/uL (4.38-5.82); RED CELL DISTRIBUTION WIDTH 12.8 % (9.4-14.8)
[2019-05-26 16:31] LABS: ALANINE AMINOTRANSFERASE 84 U/L (12-78); ALBUMIN 3.3 g/dL (3.4-5.0); ANION GAP 7 mmol/L (5-15); CHLORIDE 105 mmol/L (98-107); CREATININE 0.83 mg/dL (0.7-1.3)
[2019-05-26 16:34] LABS: ALKALINE PHOSPHATASE 160 U/L (45-117); BILIRUBIN,TOTAL 0.4 mg/dL (0.2-1.0); TOTAL PROTEIN 7.9 g/dL (6.4-8.2)
[2019-05-26] MEDS ORDERED: CLINDAMYCIN PMX 900MG/50ML 50 ML ONE (16:47)
[2019-05-26] MEDS ORDERED: ASPI-515 PO (16:52)
[2019-05-26] MEDS ORDERED: CLINDAMYCIN PMX 900MG/50ML 50 ML IV SCH (17:00)
[2019-05-26] MEDS ORDERED: ONDANSETRON ODT 4 MG PO PRN (17:00)
--- NOTE | 2019-05-26 17:02 | NUR ---
LATE ENTRY FOR 1630 [facility] HOSPITALIST BEDSIDE. NO ACUTE DISTRESS NOTED. BEDSIDE. NO NEEDS REQUESTED AT THIS TIME.
[2019-05-26 17:37] LABS: INTERNATIONAL NORMALIZED RATIO 1.05 (0.93-1.1)
--- NOTE | 2019-05-26 17:55 | NUR ---
CALLED REPORT TO PAO HICKS. RECEIVING RN UNAVAILABLE AT THIS TIME IN ISO ROOM.
--- NOTE | 2019-05-26 18:01 | NUR ---
REPORT TO PAO HICKS. THIS RN ASKED KURT RN EAGLE TAKE CULTURE SAMPLE OF WOUND PER HOSPITALIST. RECEIVING RN VERBALIZED REQUEST. ALL QUESTIONS ANSWERED.
--- NOTE | 2019-05-26 18:19 | NUR ---
REPORT TO PAO SWIFT. HOSPITALIST CHANGED LEVEL OF CARE TO MED TELE.
[2019-05-26 18:20] LABS: TROPONIN I < 0.015 ng/mL (0.000-0.045)
--- NOTE | 2019-05-26 18:31 | NUR ---
PT TRANSFERRED TO FLOOR. PT LEFT WITH ALL PERSONAL BELONGINGS.
[2019-05-26 19:04] VITALS: BP 136/87
[2019-05-26] MEDS: CEFTAROLINE 600 MG in SODIUM CHLORIDE 0.9% 100 ML IV SCH (19:56)
[2019-05-26 20:07] VITALS: BP 136/87
[2019-05-26] MEDS: INSULIN LISPRO 100 UNITS/ML, PEN SQ-INSULIN SCH (20:29)
[2019-05-26] MEDS: METHOCARBAMOL 750 MG TABLET PO PRN (20:29)
[2019-05-26] MEDS: HYDROmorphone 2MG TABLET PO PRN (20:29)
[2019-05-26] MEDS ORDERED: GABAPENTIN 300 MG CAPSULE PO SCH (21:00)
[2019-05-26] MEDS ORDERED: ATORVASTATIN 40 MG TABLET PO SCH (21:00)
[2019-05-26] MEDS ORDERED: CARVEDILOL 25 MG TABLET PO SCH (21:00)
[2019-05-26] MEDS ORDERED: AMLODIPINE 10 MG TAB PO SCH (21:00)
[2019-05-26] MEDS ORDERED: LOSARTAN 50MG TABLET PO SCH (21:00)
[2019-05-26 22:45] LABS: TROPONIN I < 0.015 ng/mL (0.000-0.045)
[2019-05-27] MEDS: SODIUM CHLORIDE 0.9% 1,000 ML IV SCH ×2 (00:31→14:23)
[2019-05-27] MEDS: METHOCARBAMOL 750 MG TABLET PO PRN ×2 (00:57→22:15)
[2019-05-27] MEDS: HYDROmorphone 2MG TABLET PO PRN ×4 (00:57→23:34)
[2019-05-27 02:38] VITALS: BP 129/82
[2019-05-27] MEDS: CEFTAROLINE 600 MG in SODIUM CHLORIDE 0.9% 100 ML IV SCH ×3 (03:48→22:00)
[2019-05-27 04:53] LABS: BASOPHILS # (AUTO) 0.03 x10^3/uL (0-0.1); BASOPHILS % (AUTO) 0 % (0-1); EOSINOPHILS # (AUTO) 0.13 x10^3/uL (0-0.4); EOSINOPHILS % (AUTO) 2 % (1-7); LYMPHOCYTES # (AUTO) 1.92 x10^3/uL (1-3.4); LYMPHOCYTES % (AUTO) 25 % (22-44); MD NO; MEAN CORPUSCULAR HEMOGLOBIN 29.6 pg (27.5-34.5); MEAN CORPUSCULAR HGB CONC 32.5 g/dL (33.2-36.2); MEAN PLATELET VOLUME 6.7 fL (7.4-10.4); MONOCYTES # (AUTO) 0.78 x10^3/uL (0.2-0.8); MONOCYTES % (AUTO) 10 % (2-9); NEUTROPHILS # (AUTO) 4.88 x10^3/uL (1.8-6.8); NEUTROPHILS % (AUTO) 63 % (42-75); PLATELET COUNT 280 x10^3/uL (130-400); RED BLOOD COUNT 3.92 x10^6/uL (4.38-5.82); RED CELL DISTRIBUTION WIDTH 13.1 % (9.4-14.8)
[2019-05-27 05:05] LABS: ALBUMIN 2.9 g/dL (3.4-5.0); ANION GAP 4 mmol/L (5-15); CALCIUM 8.6 mg/dL (8.5-10.1); CHLORIDE 108 mmol/L (98-107)
[2019-05-27 05:09] LABS: ALANINE AMINOTRANSFERASE 61 U/L (12-78); ALKALINE PHOSPHATASE 132 U/L (45-117); BILIRUBIN,TOTAL 0.5 mg/dL (0.2-1.0); CREATININE 0.85 mg/dL (0.7-1.3); TOTAL PROTEIN 7.2 g/dL (6.4-8.2)
[2019-05-27] MEDS: INSULIN LISPRO 100 UNITS/ML, PEN SQ-INSULIN SCH ×2 (07:00→22:01)
[2019-05-27] MEDS ORDERED: MIDAZOLAM 1 MG/ML, 2ML ONE (07:12)
[2019-05-27] MEDS ORDERED: FENTANYL PF 250 MCG/5ML ONE (07:12)
[2019-05-27] MEDS ORDERED: BACITRACIN 50,000 UNIT ONE (07:12)
[2019-05-27] MEDS ORDERED: BUPIVACAINE/EPI 0.5% 1:200K ONE (07:12)
[2019-05-27] MEDS ORDERED: BUPIVACAINE 0.25% ONE (07:12)
[2019-05-27] MEDS ORDERED: THROMBIN 20,000 UNIT VIAL TP ONE (07:12)
[2019-05-27] MEDS ORDERED: VANCOMYCIN 1,000 MG ONE (07:12)
[2019-05-27] MEDS ORDERED: ROCURONIUM 10MG/ML,5ML ONE (07:13)
[2019-05-27] MEDS ORDERED: SUCCINYLCHOLINE 20 MG/ML, 10ML ONE (07:13)
[2019-05-27] MEDS ORDERED: PROPOFOL 10 MG/ML, 20ML ONE (07:13)
[2019-05-27] MEDS ORDERED: PROMETHAZINE 25 MG/ML, 1ML IV PRN (07:30)
[2019-05-27] MEDS ORDERED: ONDANSETRON 2MG/ML, 2ML IV PRN (07:30)
[2019-05-27] MEDS ORDERED: hydrALAzine 20 MG/ML, 1ML IV PRN (07:30)
[2019-05-27] MEDS ORDERED: LABETALOL 5MG/ML, 20ML IV PRN (07:30)
[2019-05-27] MEDS ORDERED: GABAPENTIN 300 MG CAPSULE PO SCH (07:30)
[2019-05-27] MEDS ORDERED: METOCLOPRAMIDE 5 MG/ML, 2ML ONE (07:43)
[2019-05-27] MEDS ORDERED: BUPIVACAINE/EPI 0.5% 1:200K INFIL ONE (07:50)
[2019-05-27] MEDS ORDERED: ONDANSETRON 2MG/ML, 2ML ONE (08:16)
[2019-05-27] MEDS ORDERED: SENNA/DOCUSATE TABLET PO SCH (09:00)
[2019-05-27] MEDS ORDERED: FENTANYL PF 100 MCG/2ML ONE (09:14)
[2019-05-27] MEDS ORDERED: HYDROmorphone 2 MG/ML, 1ML ONE (09:14)
[2019-05-27] MEDS: FENTANYL PF 100 MCG/2ML IV PRN ×2 (09:15→09:25)
[2019-05-27] MEDS: HYDROmorphone 2 MG/ML, 1ML IVPush PRN ×4 (09:30→10:00)
[2019-05-27 10:30] VITALS: BP 122/81
[2019-05-27] MEDS: NS + 20MEQ KCL 1,000 ML IV SCH ×2 (12:30→22:30)
[2019-05-27] MEDS ORDERED: MAGNESIUM HYDROXIDE 8%, 30ML UDC PO PRN (12:30)
[2019-05-27] MEDS ORDERED: BISACODYL 10 MG SUPP PR PRN (12:30)
[2019-05-27 13:15] VITALS: BP 121/72
[2019-05-27] MEDS: MULTIVITAMIN 1 TABLET PO SCH (14:14)
[2019-05-27] MEDS: INSULIN REGULAR 100 UNITS/ML, 3ML VIAL SQ-INSULIN SCH ×2 (16:00→21:17)
[2019-05-27 18:45] VITALS: BP 124/70
[2019-05-27] MEDS: CARVEDILOL 25 MG TABLET PO SCH (18:46)
[2019-05-27] MEDS: metFORMIN 500 MG TABLET PO SCH (18:46)
[2019-05-27] MEDS: DIPHENHYDRAMINE 50 MG CAPSULE PO PRN ×2 (19:36→23:33)
[2019-05-27 19:54] VITALS: BP 103/67
[2019-05-27] MEDS: INSULIN GLARGINE HOMEINJ SCH ×2 (20:18→21:00)
[2019-05-27] MEDS: [UNRECOGNIZED DRUG - OTHER] HOMEINJ SCH ×2 (20:18→21:00)
[2019-05-27] MEDS ORDERED: INSULIN GLARGINE 100 UNITS/ML, PEN SQ-INSULIN SCH (21:00)
[2019-05-27] MEDS: ATORVASTATIN 40 MG TABLET PO SCH (21:57)
[2019-05-27] MEDS: GABAPENTIN 300 MG CAPSULE PO SCH (21:57)
[2019-05-27] MEDS: AMLODIPINE 10 MG TAB PO SCH ×2 (21:58→22:05)
[2019-05-27] MEDS: LOSARTAN 50MG TABLET PO SCH ×2 (22:00→22:05)
[2019-05-27] MEDS: TOUJEO 300 UNIT/ML SQ SCH (22:01)
[2019-05-28 02:40] VITALS: BP 111/65
[2019-05-28] MEDS: SODIUM CHLORIDE 0.9% 1,000 ML IV SCH (03:28)
[2019-05-28] MEDS: DIPHENHYDRAMINE 50 MG CAPSULE PO PRN ×2 (03:37→20:19)
[2019-05-28] MEDS: METHOCARBAMOL 750 MG TABLET PO PRN ×2 (03:38→20:19)
[2019-05-28] MEDS: HYDROmorphone 2MG TABLET PO PRN ×4 (03:38→20:20)
[2019-05-28 05:26] LABS: BASOPHILS # (AUTO) 0.04 x10^3/uL (0-0.1); BASOPHILS % (AUTO) 0 % (0-1); EOSINOPHILS # (AUTO) 0.18 x10^3/uL (0-0.4); EOSINOPHILS % (AUTO) 2 % (1-7); LYMPHOCYTES # (AUTO) 1.61 x10^3/uL (1-3.4); LYMPHOCYTES % (AUTO) 17 % (22-44); MD NO; MEAN CORPUSCULAR HEMOGLOBIN 29.6 pg (27.5-34.5); MEAN CORPUSCULAR VOLUME 89.9 fL (81-97); MEAN PLATELET VOLUME 6.5 fL (7.4-10.4); MONOCYTES # (AUTO) 0.93 x10^3/uL (0.2-0.8); MONOCYTES % (AUTO) 10 % (2-9); NEUTROPHILS # (AUTO) 6.79 x10^3/uL (1.8-6.8); NEUTROPHILS % (AUTO) 71 % (42-75); PLATELET COUNT 276 x10^3/uL (130-400)
[2019-05-28 05:34] VITALS: BP 108/66
[2019-05-28] MEDS: CARVEDILOL 25 MG TABLET PO SCH ×2 (05:35→17:16)
[2019-05-28] MEDS: CEFTAROLINE 600 MG in SODIUM CHLORIDE 0.9% 100 ML IV SCH ×3 (05:35→20:18)
[2019-05-28 05:37] LABS: ANION GAP 7 mmol/L (5-15); CALCIUM 8.6 mg/dL (8.5-10.1); CHLORIDE 102 mmol/L (98-107); CREATININE 0.94 mg/dL (0.7-1.3)
[2019-05-28] MEDS: INSULIN REGULAR 100 UNITS/ML, 3ML VIAL SQ-INSULIN SCH ×4 (07:00→20:21)
[2019-05-28] MEDS: NS + 20MEQ KCL 1,000 ML IV SCH (07:32)
[2019-05-28] MEDS: INSULIN GLARGINE HOMEINJ SCH (07:35)
[2019-05-28] MEDS: [UNRECOGNIZED DRUG - OTHER] HOMEINJ SCH (07:35)
[2019-05-28 07:36] VITALS: BP_SYST 119; BP_SYST 149; BP_DIAS 71; BP_DIAS 72
[2019-05-28] MEDS: MULTIVITAMIN 1 TABLET PO SCH (08:08)
[2019-05-28] MEDS: POTASSIUM CHLORIDE 20 MEQ TAB.ER.PRT PO SCH (08:08)
[2019-05-28] MEDS: metFORMIN 500 MG TABLET PO SCH ×2 (08:08→17:16)
[2019-05-28] MEDS: FUROSEMIDE 20 MG TABLET PO SCH (08:08)
[2019-05-28] MEDS: SENNA/DOCUSATE TABLET PO SCH (08:08)
[2019-05-28] MEDS: GABAPENTIN 300 MG CAPSULE PO SCH ×2 (08:08→20:20)
[2019-05-28] MEDS: [UNRECOGNIZED DRUG - OTHER] HOMEINJ SCH (08:09)
[2019-05-28 13:43] VITALS: BP 152/90
[2019-05-28] MEDS: INSULIN LISPRO 100 UNITS/ML, PEN SQ-INSULIN SCH (20:05)
[2019-05-28 20:13] VITALS: BP 132/84
[2019-05-28] MEDS: LOSARTAN 50MG TABLET PO SCH (20:20)
[2019-05-28] MEDS: AMLODIPINE 10 MG TAB PO SCH (20:20)
[2019-05-28] MEDS: ATORVASTATIN 40 MG TABLET PO SCH (20:20)
[2019-05-28] MEDS: TOUJEO 300 UNIT/ML SQ SCH (20:21)
[2019-05-28] MEDS ORDERED: [UNRECOGNIZED DRUG - OTHER] HOMEINJ SCH (21:00)
[2019-05-29 02:24] VITALS: BP 118/68
[2019-05-29] MEDS: DIPHENHYDRAMINE 50 MG CAPSULE PO PRN ×2 (03:43→20:07)
[2019-05-29] MEDS: METHOCARBAMOL 750 MG TABLET PO PRN ×2 (03:43→20:07)
[2019-05-29] MEDS: CEFTAROLINE 600 MG in SODIUM CHLORIDE 0.9% 100 ML IV SCH ×3 (03:43→20:06)
[2019-05-29] MEDS: HYDROmorphone 2MG TABLET PO PRN ×3 (03:43→20:17)
[2019-05-29 05:18] VITALS: BP 102/62
[2019-05-29] MEDS: CARVEDILOL 25 MG TABLET PO SCH ×2 (05:53→17:25)
[2019-05-29 06:18] LABS: HCT (SEDRATE) 35.7 % (39.2-51.8)
[2019-05-29 06:28] LABS: BASOPHILS # (AUTO) 0.04 x10^3/uL (0-0.1); BASOPHILS % (AUTO) 1 % (0-1); EOSINOPHILS # (AUTO) 0.25 x10^3/uL (0-0.4); EOSINOPHILS % (AUTO) 3 % (1-7); LYMPHOCYTES # (AUTO) 1.68 x10^3/uL (1-3.4); LYMPHOCYTES % (AUTO) 22 % (22-44); MD NO; MEAN CORPUSCULAR HEMOGLOBIN 30.4 pg (27.5-34.5); MEAN CORPUSCULAR HGB CONC 33.2 g/dL (33.2-36.2); MEAN CORPUSCULAR VOLUME 91.4 fL (81-97); MONOCYTES # (AUTO) 0.81 x10^3/uL (0.2-0.8); MONOCYTES % (AUTO) 11 % (2-9); NEUTROPHILS # (AUTO) 4.73 x10^3/uL (1.8-6.8); NEUTROPHILS % (AUTO) 63 % (42-75); PLATELET COUNT 270 x10^3/uL (130-400); RED BLOOD COUNT 3.94 x10^6/uL (4.38-5.82); RED CELL DISTRIBUTION WIDTH 13.2 % (9.4-14.8)
[2019-05-29 06:35] LABS: ALBUMIN 2.9 g/dL (3.4-5.0); ANION GAP 6 mmol/L (5-15); CALCIUM 8.8 mg/dL (8.5-10.1); CHLORIDE 106 mmol/L (98-107)
[2019-05-29 06:43] LABS: ALANINE AMINOTRANSFERASE 39 U/L (12-78); ALKALINE PHOSPHATASE 122 U/L (45-117); BILIRUBIN,TOTAL 0.8 mg/dL (0.2-1.0); CREATININE 0.81 mg/dL (0.7-1.3); TOTAL PROTEIN 6.8 g/dL (6.4-8.2)
[2019-05-29] MEDS: INSULIN REGULAR 100 UNITS/ML, 3ML VIAL SQ-INSULIN SCH ×4 (07:00→19:37)
[2019-05-29 07:23] VITALS: BP 117/67
[2019-05-29] MEDS: FUROSEMIDE 20 MG TABLET PO SCH (08:44)
[2019-05-29] MEDS: metFORMIN 500 MG TABLET PO SCH ×2 (08:44→17:24)
[2019-05-29] MEDS: MULTIVITAMIN 1 TABLET PO SCH (08:44)
[2019-05-29] MEDS: POTASSIUM CHLORIDE 20 MEQ TAB.ER.PRT PO SCH (08:45)
[2019-05-29] MEDS: [UNRECOGNIZED DRUG - OTHER] HOMEINJ SCH (08:45)
[2019-05-29] MEDS: SENNA/DOCUSATE TABLET PO SCH (08:45)
[2019-05-29] MEDS: GABAPENTIN 300 MG CAPSULE PO SCH ×2 (08:45→20:06)
[2019-05-29 15:00] VITALS: BP 106/68
[2019-05-29 19:15] VITALS: BP 102/43
[2019-05-29] MEDS: INSULIN LISPRO 100 UNITS/ML, PEN SQ-INSULIN SCH (19:38)
[2019-05-29] MEDS: LOSARTAN 50MG TABLET PO SCH (20:07)
[2019-05-29] MEDS: ATORVASTATIN 40 MG TABLET PO SCH (20:07)
[2019-05-29] MEDS: AMLODIPINE 10 MG TAB PO SCH (20:07)
[2019-05-29] MEDS: TOUJEO 300 UNIT/ML SQ SCH (20:17)
[2019-05-29 20:38] VITALS: BP 123/80
[2019-05-30] MEDS: DIPHENHYDRAMINE 50 MG CAPSULE PO PRN ×2 (00:27→20:36)
[2019-05-30] MEDS: METHOCARBAMOL 750 MG TABLET PO PRN ×3 (00:27→20:36)
[2019-05-30] MEDS: HYDROmorphone 2MG TABLET PO PRN ×3 (00:28→20:32)
[2019-05-30 02:07] VITALS: BP 150/85
[2019-05-30] MEDS: CEFTAROLINE 600 MG in SODIUM CHLORIDE 0.9% 100 ML IV SCH ×3 (03:50→20:36)
[2019-05-30 05:23] LABS: BASOPHILS # (AUTO) 0.05 x10^3/uL (0-0.1); BASOPHILS % (AUTO) 1 % (0-1); EOSINOPHILS # (AUTO) 0.26 x10^3/uL (0-0.4); EOSINOPHILS % (AUTO) 4 % (1-7); LYMPHOCYTES # (AUTO) 1.83 x10^3/uL (1-3.4); LYMPHOCYTES % (AUTO) 25 % (22-44); MD NO; MEAN CORPUSCULAR HEMOGLOBIN 29.6 pg (27.5-34.5); MEAN CORPUSCULAR HGB CONC 33.2 g/dL (33.2-36.2); MEAN CORPUSCULAR VOLUME 89.3 fL (81-97); MEAN PLATELET VOLUME 6.7 fL (7.4-10.4); MONOCYTES # (AUTO) 0.85 x10^3/uL (0.2-0.8); MONOCYTES % (AUTO) 12 % (2-9); NEUTROPHILS # (AUTO) 4.24 x10^3/uL (1.8-6.8); NEUTROPHILS % (AUTO) 59 % (42-75); PLATELET COUNT 282 x10^3/uL (130-400); RED BLOOD COUNT 3.82 x10^6/uL (4.38-5.82); RED CELL DISTRIBUTION WIDTH 13.4 % (9.4-14.8)
[2019-05-30 05:33] LABS: ANION GAP 6 mmol/L (5-15); CHLORIDE 103 mmol/L (98-107)
[2019-05-30 05:34] LABS: CREATININE 0.99 mg/dL (0.7-1.3)
[2019-05-30 05:53] VITALS: BP 92/49
[2019-05-30] MEDS: CARVEDILOL 25 MG TABLET PO SCH ×2 (05:53→18:02)
[2019-05-30] MEDS: INSULIN REGULAR 100 UNITS/ML, 3ML VIAL SQ-INSULIN SCH ×2 (07:00→11:00)
[2019-05-30 07:17] VITALS: BP 121/79
[2019-05-30] MEDS: SENNA/DOCUSATE TABLET PO SCH (08:32)
[2019-05-30] MEDS: POTASSIUM CHLORIDE 20 MEQ TAB.ER.PRT PO SCH (08:32)
[2019-05-30] MEDS: FUROSEMIDE 20 MG TABLET PO SCH (08:32)
[2019-05-30] MEDS: MULTIVITAMIN 1 TABLET PO SCH (08:32)
[2019-05-30] MEDS: [UNRECOGNIZED DRUG - OTHER] HOMEINJ SCH (08:33)
[2019-05-30] MEDS: metFORMIN 500 MG TABLET PO SCH ×2 (08:33→18:02)
[2019-05-30] MEDS: GABAPENTIN 300 MG CAPSULE PO SCH ×2 (08:33→20:30)
[2019-05-30 14:01] VITALS: BP 129/84
[2019-05-30 19:45] VITALS: BP 111/74
[2019-05-30] MEDS: TOUJEO 300 UNIT/ML SQ SCH (20:27)
[2019-05-30] MEDS: ATORVASTATIN 40 MG TABLET PO SCH (20:30)
[2019-05-30] MEDS: AMLODIPINE 10 MG TAB PO SCH (20:31)
[2019-05-30] MEDS: LOSARTAN 50MG TABLET PO SCH (20:31)
[2019-05-30] MEDS: INSULIN LISPRO 100 UNITS/ML, PEN SQ-INSULIN SCH (20:33)
[2019-05-31 01:48] VITALS: BP 114/66
[2019-05-31] MEDS: CEFTAROLINE 600 MG in SODIUM CHLORIDE 0.9% 100 ML IV SCH ×2 (04:19→12:20)
[2019-05-31] MEDS: CARVEDILOL 25 MG TABLET PO SCH (05:29)
[2019-05-31 07:55] VITALS: BP 105/64
[2019-05-31] MEDS: GABAPENTIN 300 MG CAPSULE PO SCH (08:26)
[2019-05-31] MEDS: metFORMIN 500 MG TABLET PO SCH (08:27)
[2019-05-31] MEDS: [UNRECOGNIZED DRUG - OTHER] HOMEINJ SCH (08:28)
[2019-05-31] MEDS: POTASSIUM CHLORIDE 20 MEQ TAB.ER.PRT PO SCH (08:28)
[2019-05-31] MEDS: FUROSEMIDE 20 MG TABLET PO SCH (08:29)
[2019-05-31] MEDS: MULTIVITAMIN 1 TABLET PO SCH (08:29)
[2019-05-31] MEDS: SENNA/DOCUSATE TABLET PO SCH (08:29)
[2019-05-31] MEDS ORDERED: DOXY100T PO (14:18)
== END 2019-05-31 14:55 | disposition home or self-care (01) | DRG 857 ==
LOC: OR 16:26 → EDIP 16:27 → OR 16:49 → 4EST 18:45 → DCLOUNGE 05-31 14:40
PROVIDERS: ADMIT Internal Medicine; ATTEND Internal Medicine
PROC: 0J970ZZ Drainage of Back Subcutaneous Tissue and Fascia, Open Approach (ICD-10-PCS; principal; 2019-05-27 07:30)
DX: T81.41XA Infection following a procedure, superficial incisional surgical site, initial encounter (principal); L03.312 Cellulitis of back [any part except buttock and flank]; Z68.42 Body mass index [BMI] 45.0-49.9, adult; Y83.8 Other surgical procedures as the cause of abnormal reaction of the patient, or of later complication, without mention of misadventure at the time of the procedure; E66.01 Morbid (severe) obesity due to excess calories; E78.5 Hyperlipidemia, unspecified; F41.9 Anxiety disorder, unspecified; G47.33 Obstructive sleep apnea (adult) (pediatric); E11.42 Type 2 diabetes mellitus with diabetic polyneuropathy; I10 Essential (primary) hypertension; M48.061 Spinal stenosis, lumbar region without neurogenic claudication; Z79.4 Long term (current) use of insulin; Z82.49 Family history of ischemic heart disease and other diseases of the circulatory system; Y92.89 Other specified places as the place of occurrence of the external cause; Z83.3 Family history of diabetes mellitus; Z88.1 Allergy status to other antibiotic agents; Z98.1 Arthrodesis status
CPT/HCPCS: 36415; 71045; 80048; 80053; 82962; 84484; 85025; 85610; 85651; 85730; 86140; 87040; 87070; 87075; 87205; 93005; 96365; G0378; J0712; J1170; J1815; J2250; J2405; J2704; J3010; J3370; J3490; J0330; J2765; J7030

== ENCOUNTER 2019-06-21 12:04 | Outpatient (CLI) | payer MEDICAID | END 2019-06-21 23:59 | disposition home or self-care (01) | LOC: RAD 12:04 | PROVIDERS: ATTEND Physician Assistant Surgical | DX: M47.816 Spondylosis without myelopathy or radiculopathy, lumbar region (principal); Z98.890 Other specified postprocedural states | CPT/HCPCS: 72110 ==